=== PATIENT | male | born 1965 | race Caucasian/White ===

== ENCOUNTER → 2018-07-01 | Outpatient (CLI) | payer BC, OTHER | LOC: MRI 09:31 | DX: M47.812 Spondylosis without myelopathy or radiculopathy, cervical region (principal); G45.9 Transient cerebral ischemic attack, unspecified; J34.89 Other specified disorders of nose and nasal sinuses; R26.89 Other abnormalities of gait and mobility; Z86.69 Personal history of other diseases of the nervous system and sense organs ==